=== PATIENT | male | born 1985 | race Caucasian/White ===

== ENCOUNTER 2016-07-28 23:09 | Emergency (ER) | payer SELFPAY ==
[2016-07-28 23:35] VITALS: BP 132/72
--- NOTE | 2016-07-28 23:53 | ER Document Report ---
Addendum entered and electronically signed by MAIRA GONZALEZ NP 08/02/16 15:50 : Original Note: HPI - HPI Patient complains to provider of: cyst pain Onset: Other - one year Quality of pain: Achy Severity: Mild Pain Level: 2 Context: pt presents with c/o cyst to his back that has been there for one year. He reports feeling sharp pains tonight, couldn't sleep. Denies f/n//v/d. Associated Symptoms: None Exacerbated by: Denies Relieved by: Denies Similar symptoms previously: No Recently seen / treated by doctor: No - DERM Skin Color: Normal Past Medical History - General Information source: Patient - Social History Smoking Status: Unknown if Ever Smoked Cigarette use (# per day): No Chew tobacco use (# tins/day): No Frequency of alcohol use: None Drug Abuse: None Occupation: [employer] Family History: Reviewed & Not Pertinent Patient has suicidal ideation: No Patient has homicidal ideation: No - Medical History Medical History: Negative Surgical Hx: Negative Vertical Provider Document - CONSTITUTIONAL Agree With Documented VS: Yes Exam Limitations: No Limitations General Appearance: WD/WN, No Apparent Distress - INFECTION CONTROL TRAVEL OUTSIDE OF THE [place] IN LAST 30 DAYS: No - HEENT HEENT: Atraumatic, Normocephalic - NECK Neck: Normal Inspection, Supple - RESPIRATORY Respiratory: No Respiratory Distress O2 Sat by Pulse Oximetry: 98 - CARDIOVASCULAR Cardiovascular: Regular Rate - MUSCULOSKELETAL/EXTREMETIES Musculoskeletal/Extremeties: MAEW, FROM - NEURO Level of Consciousness: Awake, Alert, Appropriate Motor/Sensory: No Motor Deficit - DERM Integumentary: Warm, Dry Adult Front & Back Diagram: 1 - soft swelling, fatty cyst, moveable, with no erythema, no pustule, no warmth Course - Vital Signs Vital signs: Temp Pulse Resp BP Pulse Ox 98.0 F 68 16 132/72 H 98 07/28/16 23:32 07/28/16 23:32 07/28/16 23:32 07/28/16 23:32 07/28/16 23:32 Discharge - Discharge Clinical Impression: cyst on back , elevated blood pressure Condition: Stable Disposition: HOME, SELF-CARE Instructions: Surgeon Additional Instructions: *You have been treated for a cyst on your back *Take tylenol or motrin as indicated *Monitor the site for signs of infection such as increasing pain, redness, swelling, warmth *Follow up with your primary care provider this week for referral to surgeon *Return to ED for signs of infection, worsening condition, changes, needs Forms: Elevated Blood Pressure
== END 2016-07-29 00:04 | disposition home or self-care (01) ==
LOC: ER 23:09
DX: D36.7 Benign neoplasm of other specified sites (principal); I10 Essential (primary) hypertension
CPT/HCPCS: 99283

== ENCOUNTER 2017-01-13 07:10 | Observation (INO) | payer OTHER ==
[2017-01-13] MEDS ORDERED: LIDOCAINE 2% VISCOUS SOLN 20 ML UDCUP PO ONE (08:27)
[2017-01-13] MEDS ORDERED: MAG HYDROX/AL HYDROX/SIMETH SUSP 30 ML UDCUP PO ONE (08:27)
[2017-01-13] MEDS ORDERED: NORMAL SALINE 1000 ML 1,000 ML IV ONE (08:28)
[2017-01-13] MEDS ORDERED: FAMOTIDINE INJ/PF 20 MG/2 ML SDV IV ONE (08:28)
[2017-01-13] MEDS ORDERED: FENTANYL CITRATE INJ/PF 100 MCG/2 ML AMPUL IV ONE ×2 (08:28→11:07)
[2017-01-13] MEDS ORDERED: ONDANSETRON HCL INJ/PF 4 MG/2 ML SDV IV ONE ×3 (08:29→23:45)
--- NOTE | 2017-01-13 08:29 | ER Document Report ---
ED GI/ - General Mode of Arrival: Ambulatory Information source: Patient TRAVEL OUTSIDE OF THE [place] IN LAST 30 DAYS: No - HPI Patient complains to provider of: Abdominal pain Onset: Just prior to arrival Associated symptoms: None <ALINA SÁNCHEZ - Last Filed: 01/13/17 10:07> <SOURAV HERRERA - Last Filed: 01/13/17 16:08> - General Chief Complaint: Abdominal Pain Stated Complaint: ABDOMINAL PAIN Time Seen by Provider: 01/13/17 08:16 Notes: Patient is a 31-year-old male that presents to the emergency department today with complaints of upper abdominal pain. Patient states this pain began this morning at [address] to work. Patient states he has had a pain similar to this in the past and he was seen at [facility] for this and diagnosed with pancreatitis. Patient states at that time, he had been drinking the night before. Patient states he has not had any EtOH since then. (ALINA SÁNCHEZ) - Related Data Allergies/Adverse Reactions: cefaclor [From Ceclor] Allergy (Verified 01/13/17 07:19) meperidine [From Demerol] Adverse Reaction (Verified 01/13/17 07:19) Past Medical History - General Information source: Patient - Social History Smoking Status: Unknown if Ever Smoked Frequency of alcohol use: None Drug Abuse: None Lives with: Family Family History: Reviewed & Not Pertinent Patient has suicidal ideation: No Patient has homicidal ideation: No Surgical Hx: Negative - Immunizations Hx Diphtheria, Pertussis, Tetanus Vaccination: Yes <ALINA SÁNCHEZ - Last Filed: 01/13/17 10:07> <SOURAV HERRERA - Last Filed: 01/13/17 16:08> - Medical History Notes: History of pancreatitis (ALINA SÁNCHEZ) Review of Systems - Review of Systems Constitutional: No symptoms reported EENT: No symptoms reported Cardiovascular: No symptoms reported Respiratory: No symptoms reported Gastrointestinal: See HPI, Abdominal pain Genitourinary: No symptoms reported Male Genitourinary: No symptoms reported Musculoskeletal: No symptoms reported Skin: No symptoms reported Hematologic/Lymphatic: No symptoms reported Neurological/Psychological: No symptoms reported -: Yes All other systems reviewed and negative <ALINA SÁNCHEZ - Last Filed: 01/13/17 10:07> Physical Exam <ALINA SÁNCHEZ - Last Filed: 01/13/17 10:07> <SOURAV HERRERA - Last Filed: 01/13/17 16:08> - Vital signs Vitals: Temp Pulse Resp BP Pulse Ox 97.6 F 58 L 18 113/53 L 99 01/13/17 07:19 01/13/17 07:19 01/13/17 07:19 01/13/17 07:19 01/13/17 07:19 - Notes Notes: Physical Exam: General: Alert, appears mildly uncomfortable. HEENT: Normocephalic. Atraumatic. PERRL. Extraocular movements intact. Oropharynx clear. Neck: Supple. Non-tender. Respiratory: No respiratory distress. Clear and equal breath sounds bilaterally. Cardiovascular: Regular rate and rhythm. Abdominal: Epigastric and right upper quadrant tenderness with palpation. Positive guarding diffusely. No distension. Normal Bowel Sounds. Back: Non-tender. No deformity or step off. Extremities: Moves all four extremities. Upper extremities: Normal inspection. Normal ROM. Lower extremities: Normal inspection. No edema. Normal ROM. Neurological: Normal cognition. AAOx4. Normal speech. Psychological: Normal affect. Normal Mood. Skin: Warm. Dry. Normal color. (ALINA SÁNCHEZ) Course - Laboratory Result Diagrams: 01/13/17 08:50 01/13/17 08:50 <ALINA SÁNCHEZ - Last Filed: 01/13/17 10:07> - Laboratory Result Diagrams: 01/13/17 08:50 01/13/17 08:50 - Diagnostic Test Radiology reviewed: Image reviewed, Reports reviewed - Thickened gallbladder wall with pericholecystic edema. - Consults Dr. Recinos Time consulted: 15:00 Consulted provider: will come to ER <SOURAV HERRERA - Last Filed: 01/13/17 16:08> - Re-evaluation Re-evalutation: 01/13/17 11:07 Got a little relief from the fentanyl, he does not take GI cocktail helped the pain it just made things feel numb. He remains quite tender in the epigastrium and right upper quadrant at this time. Given the sudden onset of his discomfort , we will get a gallbladder ultrasound to evaluate for gallbladder pathology. The lipase is on the low normal side. (SOURAV HERRERA) - Vital Signs Vital signs: Temp Pulse Resp BP Pulse Ox 97.9 F 50 L 16 103/54 L 99 01/13/17 11:19 01/13/17 11:19 01/13/17 11:19 01/13/17 11:19 01/13/17 11:19 - Laboratory Laboratory results interpreted by me: 01/13/17 01/13/17 08:50 08:50 Sodium 145.2 H ALT 20 L Alkaline Phosphatase 35 L Urine Urobilinogen 4.0 H Discharge <ALINA SÁNCHEZ - Last Filed: 01/13/17 10:07> - Discharge Admitting Provider: Surgicalist Unit Admitted: Surgical Floor <SOURAV HERRERA - Last Filed: 01/13/17 16:08> - Discharge Clinical Impression: Epigastric abdominal pain Condition: Stable Disposition: ADMITTED INPATIENT Scribe Attestation: 01/13/17 15:17 I personally performed the services described in the documentation, reviewed and edited the documentation which was dictated to the scribe in my presence, and it accurately records my words and actions. (SOURAV HERRERA) Scribe Documentation - Scribe Written by Sanjeeve:: Jennifer Domínguez, 01/13/2017 1008 acting as scribe for :: Camryn <ALINA SÁNCHEZ - Last Filed: 01/13/17 10:07>
[2017-01-13 09:31] LABS: ABSOLUTE EOSINOPHILS # (AUTO) 0.1 10^3/uL (0.0-0.6); ABSOLUTE LYMPHOCYTES (AUTO) 1.7 10^3/uL (0.5-4.7); ABSOLUTE MONOCYTES (AUTO) 0.4 10^3/uL (0.1-1.4); ABSOLUTE NEUT (AUTO) 3.1 10^3/uL (1.7-8.2); BASOPHILS % (AUTO) 0.5 % (0-2); HEMATOCRIT 45.3 % (37.9-51.0); HEMOGLOBIN 14.7 g/dL (13.5-17.0); HGB HCT DIFFERENCE -1.2; LYMPHOCYTES % (AUTO) 31.4 % (13-45); MEAN CORPUSCULAR HEMOGLOBIN 28.8 pg (27.0-33.4); MEAN CORPUSCULAR HGB CONC 32.4 g/dL (32.0-36.0); MEAN CORPUSCULAR VOLUME 89 fl (80-97); MONOCYTES % (AUTO) 8.2 % (3-13); RED CELL DISTRIBUTION WIDTH 13.1 % (11.5-14.0); SEGMENTED NEUTROPHILS % (AUTO) 57.9 % (42-78); WHITE BLOOD COUNT 5.4 10^3/uL (4.0-10.5)
[2017-01-13 09:34] LABS: APPEARANCE,URINE SLIGHTLY-CLOUDY; BILIRUBIN,URINE NEGATIVE (NEGATIVE); GLUCOSE, URINE NEGATIVE (NEGATIVE); KETONES,URINE NEGATIVE (NEGATIVE); LEUKOCYTE ESTERASE,URINE NEGATIVE (NEGATIVE); NITRITE,URINE NEGATIVE (NEGATIVE); PROTEIN,URINE NEGATIVE (NEGATIVE); URINE SPECIFIC GRAVITY 1.027
[2017-01-13 09:42] LABS: BACTERIA,URINE TRACE /HPF
[2017-01-13 09:53] LABS: ALANINE AMINOTRANSFERASE 20 U/L (21-72); ALBUMIN 4.1 g/dL (3.5-5.0); ALKALINE PHOSPHATASE 35 U/L (38-126); ANION GAP 11 (5-19); ASPARTATE AMINO TRANSFERASE 25 U/L (17-59); BILIRUBIN,DIRECT 0.3 mg/dL (0.0-0.4); BILIRUBIN,TOTAL 0.6 mg/dL (0.2-1.3); BLOOD UREA NITROGEN 12 mg/dL (7-20); CALCIUM 9.1 mg/dL (8.4-10.2); CARBON DIOXIDE 27 mmol/L (22-30); CHLORIDE 107 mmol/L (98-107); CREATININE RESULT 0.89 mg/dL (0.52-1.25); GLUCOSE 82 mg/dL (75-110); LIPASE 45.1 U/L (23-300); POTASSIUM 4.1 mmol/L (3.6-5.0); SODIUM 145.2 mmol/L (137-145); TOTAL PROTEIN 6.6 g/dL (6.3-8.2)
[2017-01-13] MEDS ORDERED: DEXTROSE 5%-LACTATED RINGERS 1,000 ML IV ONE (11:05)
--- NOTE | 2017-01-13 14:34 | RADIOLOGY REPORT (SQ) ---
EXAM DESCRIPTION: U/S ABDOMEN LIMITED W/O DOP COMPLETED DATE/TIME: 01/13/2017 2:25 pm REASON FOR STUDY: epigastric and RUQ abd pain COMPARISON: None. TECHNIQUE: Dynamic and static grayscale images acquired of the abdomen and recorded on PACS. Additio nal selected color Doppler and spectral images recorded. LIMITATIONS: None. FINDINGS: PANCREAS: No masses. Visualized pancreatic duct normal caliber. LIVER: No masses. Echotexture normal. LIVER VASCULATURE: Normal directional flow of the main portal vein and hepatic veins. GALLBLADDER: The gallbladder wall is thickened measured 5.4 mm. There is pericholecystic fluid. ULTRASOUND-DETECTED BENAVIDES'S SIGN: Negative. INTRAHEPATIC DUCTS AND COMMON DUCT: CBD and intrahepatic ducts normal caliber. No filling defects. INFERIOR VENA CAVA: Normal flow. AORTA: No aneurysm. RIGHT KIDNEY: Normal size. Normal echogenicity. No solid or suspicious masses. No hydronephrosis. No calcifications. PERITONEAL AND RIGHT PLEURAL SPACE: No ascites or effusions. OTHER: No other significant findings. IMPRESSION: Thickened gallbladder wall with pericholecystic edema. Negative sonographic Benavides's si gn. No ductal dilatation. TECHNICAL DOCUMENTATION: JOB ID: [id number] Minutes- All Rights Reserved
[2017-01-13] MEDS ORDERED: NORMAL SALINE 1000 ML 1,000 ML IV PRN (16:15)
--- NOTE | 2017-01-13 16:15 | PDOC H&P ---
History of Present Illness Patient complains of: Epigastric abdominal pain with nausea History of Present Illness: BA BLAKE is a 31 year old male Presents emergency room this a.m. with complaints of severe sudden onset midepigastric abdominal pain. The patient stated that he was on his way to work this morning began having midepigastric abdominal pain that was severe. He denied any radiation to the pain to his back or his shoulder. He stated he had not had that pain in the past. He had eaten nothing prior to the onset of the pain. He stated last night he ate at [employer] denied any renea colored stools or dark urine. He stated that he did not vomit during this event. He continues to complain of some nausea. Patient has a history of EtOH abuse stating that he drank a case of beer a day and a pint of liquor a day for 3 years but he quit with an episode of severe acute pancreatitis in 2013. He stated that he has not had any alcohol since that time. Not any recurrent episodes of pancreatitis. He denies any fever, chills, sweats. He states the pain is still an 8 out of 10. Patient denies any fatty food intolerance but stated that he was told to stay away from fatty foods when he had his bout of pancreatitis. He has been extremely healthy since that time. I did any increased flatulence or belching. Fatty food intolerance. Stated at the time that he had pancreatitis that only a CT scan of the abdomen pelvis was performed. He does not remember having an ultrasound at that time. But he never told them that he had any type of gallstones. Past Medical History Cardiac Medical History: Reports: None Pulmonary Medical History: Reports: None EENT Medical History: Reports: None Neurological Medical History: Reports: None Endocrine Medical History: Reports: None Renal/ Medical History: Reports: None Malignancy Medical History: Reports: None GI Medical History: Reports: Other - The pancreatitis secondary to EtOH abuse Musculoskeltal Medical History: Reports: None Skin Medical History: Reports: None Psychiatric Medical History: Reports: Alcohol Dependency Traumatic Medical History: Reports: None Hematology: Reports: None Infectious Medical History: Reports: None Past Surgical History Past Surgical History: Reports: Tonsillectomy Social History Lives with: Family Smoking Status: Unknown if Ever Smoked Frequency of Alcohol Use: Heavy - To admit to drinking a case of beer per day and 1 pint of liquor per day for 4 years. Patient stated that he has not had any alcohol since 2013 Hx Prescription Drug Abuse: No Family History Family History: Reviewed & Not Pertinent Parental Family History Reviewed: Yes - Mother alive with dependent diabetes mellitus type 2, mother alive and in g Children Family History Reviewed: No Sibling(s) Family History Reviewed.: Yes Medication/Allergy Home Medications: Oxycodone HCl/Acetaminophen [Percocet 5-325 mg Tablet] 1 - 2 tab PO Q4H PRN #15 tablet 05/08/16 Prednisone [Deltasone 10 mg Tablet] 10 mg PO ASDIR PRN #21 tablet 05/08/16 Allergies/Adverse Reactions: cefaclor [From Ceclor] Allergy (Verified 01/13/17 07:19) meperidine [From Demerol] Adverse Reaction (Verified 01/13/17 07:19) Review of Systems Constitutional: PRESENT: anorexia Eyes: PRESENT: as per HPI Ears: PRESENT: as per HPI Nose, Mouth, and Throat: PRESENT: as per HPI Breasts: PRESENT: as per HPI Cardiovascular: PRESENT: as per HPI Respiratory: PRESENT: as per HPI Gastrointestinal: PRESENT: abdominal pain, heartburn, nausea Genitourinary: PRESENT: as per HPI Musculoskeletal: PRESENT: as per HPI Integumentary: PRESENT: as per HPI Neurological: PRESENT: as per HPI Psychiatric: PRESENT: as per HPI Endocrine: PRESENT: as per HPI Hematologic/Lymphatic: PRESENT: as per HPI Allergic/Immunologic: PRESENT: as per HPI Physical Exam Vital Signs: Temp Pulse Resp BP Pulse Ox 97.9 F 50 L 16 103/54 L 99 01/13/17 11:19 01/13/17 11:19 01/13/17 11:19 01/13/17 11:19 01/13/17 11:19 Intake & Output 01/12/17 01/13/17 01/14/17 06:59 06:59 06:59 Weight 63.9 kg General appearance: PRESENT: cooperative, mild distress, thin, well-developed, well-nourished Head exam: PRESENT: atraumatic, normocephalic Eye exam: PRESENT: conjunctiva pink, EOMI, PERRLA Ear exam: PRESENT: normal external ear exam Mouth exam: PRESENT: dry mucosa, neck supple Teeth exam: ABSENT: dental caries, dental tenderness, edentulous, poor dentation , other Neck exam: ABSENT: carotid bruit, full ROM, JVD, lymphadenopathy, meningismus, tenderness, thyromegaly, tracheal deviation, tracheostomy, other Respiratory exam: PRESENT: symmetrical, unlabored Cardiovascular exam: PRESENT: RRR, +S1, +S2 Pulses: PRESENT: normal carotid pulses, normal radial pulses, normal femoral pulses, normal dorsalis pedis pul GI/Abdominal exam: PRESENT: guarding - Epigastric area, normal bowel sounds, soft, other - Negative Benavides sign, negative Kehr's sign Rectal exam: PRESENT: deferred Gentrourinary exam: PRESENT: other - Penis is circumcised, testicles descended bilaterally evidence of hernias bilaterally. Musculoskeletal exam: PRESENT: ambulatory, full ROM, normal inspection Neurological exam: PRESENT: alert, awake, oriented to person, oriented to place , oriented to time, oriented to situation, reflexes normal, CN II-XII grossly intact, normal gait Psychiatric exam: PRESENT: appropriate affect Skin exam: PRESENT: intact Results Laboratory Results: 01/13/17 08:50 01/13/17 08:50 01/13/17 01/13/17 01/13/17 08:50 08:50 08:50 WBC 5.4 RBC 5.10 Hgb 14.7 Hct 45.3 MCV 89 MCH 28.8 MCHC 32.4 RDW 13.1 Plt Count 151 Seg Neutrophils % 57.9 Lymphocytes % 31.4 Monocytes % 8.2 Eosinophils % 2.0 Basophils % 0.5 Absolute Neutrophils 3.1 Absolute Lymphocytes 1.7 Absolute Monocytes 0.4 Absolute Eosinophils 0.1 Absolute Basophils 0.0 Sodium 145.2 H Potassium 4.1 Chloride 107 Carbon Dioxide 27 Anion Gap 11 BUN 12 Creatinine 0.89 Est GFR ( Amer) > 60 Est GFR (Non-Af Amer) > 60 Glucose 82 Calcium 9.1 Total Bilirubin 0.6 AST 25 ALT 20 L Alkaline Phosphatase 35 L Total Protein 6.6 Albumin 4.1 Lipase 45.1 Urine Color YELLOW Urine Appearance SLIGHTLY-CLOUDY Urine pH 5.0 Ur Specific [place] 1.027 Urine Protein NEGATIVE Urine Glucose (UA) NEGATIVE Urine Ketones NEGATIVE Urine Blood NEGATIVE Urine Nitrite NEGATIVE Ur Leukocyte Esterase NEGATIVE Impressions: Abdomen Ultrasound 01/13/17 11:06 IMPRESSION: Thickened gallbladder wall with pericholecystic edema. Negative sonographic Benavides's sign. No ductal dilatation. Status: Imported from PACS - Ultrasound gallbladder revealed pericholecystic edema with a thickened gallbladder wall at 5.4 mm. No evidence of cholelithiasis, cholecystitis noted. Assessment & Plan - Diagnosis (1) Epigastric abdominal pain Is this a current diagnosis for this admission?: YesPlan: 1. The patient has no right upper quadrant abdominal pain and complains of only pain in the midepigastric area that does not radiate to the shoulder or back no evidence of cholelithiasis data white blood count differential would include acalculous cholecystitis versus peptic ulcer disease. As the patient has noted stress at home as he is going through divorce, I would perform an esophagogastroduodenoscopy on the patient to entertaining any type of surgical intervention 2. Patient does not have an elevated white count will consider only pain control and nausea control at this time. 3. Patient's history of acute pancreatitis in the past would obtain a CT scan of the abdomen and pelvis with oral and IV contrast if the EGD is normal. - Time Time Spent: 50 to 70 Minutes Medications reviewed and adjusted accordingly: Yes Anticipated discharge: Home Within: within 24 hours Disposition: Medical surgical floor
[2017-01-13] MEDS: ONDANSETRON HCL INJ/PF 4 MG/2 ML SDV IV PRN (16:58)
[2017-01-13] MEDS ORDERED: PANTOPRAZOLE SODIUM 40 MG VIAL IV ONE (17:15)
[2017-01-13] MEDS: HYDROMORPHONE HCL INJ/PF 2 MG/ML AMPULE IV PRN (22:33)
[2017-01-13] MEDS: PANTOPRAZOLE SODIUM 40 MG VIAL IV SCH (22:34)
[2017-01-14 06:18] LABS: HEMATOCRIT 39.3 % (37.9-51.0); HGB HCT DIFFERENCE -0.3; MEAN CORPUSCULAR HEMOGLOBIN 29.5 pg (27.0-33.4); MEAN CORPUSCULAR HGB CONC 33.1 g/dL (32.0-36.0); MEAN CORPUSCULAR VOLUME 89 fl (80-97); RED CELL DISTRIBUTION WIDTH 13.2 % (11.5-14.0); WHITE BLOOD COUNT 5.9 10^3/uL (4.0-10.5)
[2017-01-14 06:38] LABS: PARTIAL THROMBOPLASTIN TIME 29.3 SEC (23.5-35.8); PROTHROMBIN TIME 15.5 SEC (11.4-15.4)
[2017-01-14 06:49] LABS: ALANINE AMINOTRANSFERASE 22 U/L (21-72); ALBUMIN 3.3 g/dL (3.5-5.0); ALKALINE PHOSPHATASE 34 U/L (38-126); AMYLASE 38 U/L (30-110); ANION GAP 8 (5-19); ASPARTATE AMINO TRANSFERASE 19 U/L (17-59); BILIRUBIN,DIRECT 0.3 mg/dL (0.0-0.4); BILIRUBIN,TOTAL 0.5 mg/dL (0.2-1.3); BLOOD UREA NITROGEN 8 mg/dL (7-20); CALCIUM 8.8 mg/dL (8.4-10.2); CARBON DIOXIDE 26 mmol/L (22-30); CHLORIDE 107 mmol/L (98-107); CREATININE RESULT 0.85 mg/dL (0.52-1.25); GLUCOSE 85 mg/dL (75-110); LIPASE 52.4 U/L (23-300); POTASSIUM 4.8 mmol/L (3.6-5.0); SODIUM 140.6 mmol/L (137-145); TOTAL PROTEIN 5.5 g/dL (6.3-8.2)
[2017-01-14] MEDS: HYDROMORPHONE HCL INJ/PF 2 MG/ML AMPULE IV PRN (08:22)
--- NOTE | 2017-01-14 08:24 | Physician Advisory Note ---
Physician Advisor ProgressNote .: Pursuant to the plan for [facility], I have reviewed the medical record for this patient. Physician Advisor Statement: Attending, please consider documenting, if you agree: 1. "Acute Hypernatremia, suspect due to intravascular volume depletion, resolved after IVF" 2. Status: if pt not improved enough for d/c later today after appropriate eval, please document clinical reasons/concerns, & may consider change to Inpatient status. 3. Anemia: A. Do you suspect it is likely acute or chronic? B. Most likely cause = [Acute blood loss from ____? Nutritional Fe defic? Fe defic from chr blood loss from ___? Nutritional ___ defic?] Thanks for your help with optimizing documentation! MD Nicholas [facility] Physician Advisor [phone]
[2017-01-14] MEDS: PANTOPRAZOLE SODIUM 40 MG VIAL IV SCH (09:34)
[2017-01-14] MEDS ORDERED: MIDAZOLAM 2 MG/2 ML INJ ONE (10:53)
[2017-01-14] MEDS ORDERED: PROPOFOL INJ 200 MG/20 ML VIAL IV ONE (10:54)
--- NOTE | 2017-01-14 11:22 | Brief Operative Note ---
BRIEF OPERATIVE REPORT DATE OF SURGERY: 01/14/17 TIME OF SURGERY: 11:05 PREOPERATIVE DIAGNOSIS: Epigastric abdominal pain rule out peptic ulcer disease POSTOPERATIVE DIAGNOSIS: Antritis SURGEON: DAVID KELLEY FINDINGS: Erythema of the prepyloric antrum of the stomach COMPLICATIONS: none ESTIMATED BLOOD LOSS: none TISSUE REMOVED OR ALTERED: Biopsy prepyloric antrum TECHNICAL PROCEDURE: On 01/14/2017 31-year-old white male was taken to the endoscopy suite placed supine position after adequate MAC anesthesia was placed in the left lateral decubitus position a bite block was placed between the teeth. The Olympus-GIF XQ 180 videogastroscope was advanced to bite block into the hypopharynx into the esophagus without difficulty. The scope was advanced to the level of the GE junction. The stomach was insufflated with air of the instrument. The scope was advanced to the level of pylorus pylorus was intubated first second and third portions of the duodenum were intubated. The scope was slowly withdrawn visualizing the duodenal mucosa to the bulb the bulb was photographed scope withdrawn in the prepyloric area hyperreflexive himself 180 and withdrawn visualizing the cardia and GE junction. Scope was then straightened and advanced in the antrum where a biopsy was obtained in the prepyloric area passed off the operative field and sent to pathology for further evaluation. Scope was then withdrawn up the lesser curvature stomach to the GE junction and liquid removed from the stomach scope withdrawn into the distal, mid, proximal esophagus then removed from the patient he was placed supine and taken recovery area in satisfactory condition. Gross pathology this 31-year-old white male with complaints of midepigastric abdominal pain noted to have edema of the gallbladder wall some thickening of the gallbladder wall but a history of pancreatitis secondary to EtOH abuse presented for EGD to rule out gastric ulcer. Operative pathology include a normal-appearing esophagus along its entire length. The Z line was symmetrical and up held without any evidence of esophagitis. Stomach was normal in size and configuration. There was mild erythema in the prepyloric antrum. Duodenum was normal to the fourth portion.
[2017-01-14] MEDS: ONDANSETRON HCL INJ/PF 4 MG/2 ML SDV IV PRN (12:24)
[2017-01-14] MEDS ORDERED: OXYCODONE-ACETAMINOPHEN 5-325 MG TABLET PO PRN (12:48)
[2017-01-14] MEDS ORDERED: GLYCOPYRROLATE INJ 0.4 MG/2 ML VIAL ONE (14:41)
[2017-01-14] MEDS ORDERED: ONDANSETRON HCL INJ/PF 4 MG/2 ML SDV ONE (14:41)
[2017-01-14] MEDS ORDERED: METOCLOPRAMIDE HCL INJ/PF 10 MG/2 ML SDV ONE (14:41)
--- NOTE | 2017-01-14 14:48 | RADIOLOGY REPORT (SQ) ---
EXAM DESCRIPTION: CT ABD/PELVIS WITH IV ORAL COMPLETED DATE/TIME: 01/14/2017 2:28 pm REASON FOR STUDY: epigastric abdominal pain COMPARISON: None. TECHNIQUE: CT scan of the abdomen and pelvis performed using helical scanning technique with dynamic intravenous contrast injection. Oral contrast. Images reviewed with lung, soft tissue, and bone win dows. Reconstructed coronal and sagittal MPR images reviewed. Delayed images for evaluation of the ur inary system also acquired. All images stored on PACS. All CT scanners at this facility use dose modulation, iterative reconstruction, and/or weight based d osing when appropriate to reduce radiation dose to as low as reasonably achievable (ALARA). [facility]: Dose Right [facility]: CareDose [facility]: Dose Right [facility]: Teradose 4D [facility]: zePASS CONTRAST TYPE AND DOSE: contrast/concentration: Isovue 370.00 mg/ml; Total Contrast Delivered: 69.0 ml; Total Saline Delivered: 65.0 ml RENAL FUNCTION: Creatinine 0.9 BUN 8 RADIATION DOSE: Up-to-date CT equipment and radiation dose reduction techniques were employed. CTDIv ol: 2.8 - 3.2 mGy. DLP: 326 mGy-cm.. LIMITATIONS: None. FINDINGS: LOWER CHEST: There is a small right pleural effusion. There is no pulmonary infiltrate or mass. LIVER: Normal size. No masses or dilated ducts. SPLEEN: Normal size. No focal lesions. PANCREAS: No masses. No significant calcifications. No adjacent inflammation or peripancreatic fluid collections. Pancreatic duct not dilated. GALLBLADDER: No identified stones by CT criteria. No inflammatory changes to suggest cholecystitis. ADRENAL GLANDS: No significant masses or asymmetry. RIGHT KIDNEY AND URETER: No solid masses. No significant calcifications. No hydronephrosis or hyd roureter. LEFT KIDNEY AND URETER: No solid masses. No significant calcifications. No hydronephrosis or hydr oureter. AORTA AND VESSELS: No aneurysm. No dissection. Renal arteries, SMA, celiac without stenosis. RETROPERITONEUM: No retroperitoneal adenopathy, hemorrhage or masses. BOWEL AND PERITONEAL CAVITY: There is a small amount of free fluid around the liver and in the pelvis . No bowel mass is seen. No inflammatory changes are associated with the bowel. APPENDIX: Normal. PELVIS: Free fluid is present. The urinary bladder is normal. The prostate gland and seminal vesicl es are normal. ABDOMINAL WALL: No masses. No hernias. BONES: No significant or acute findings. OTHER: No other significant finding. IMPRESSION: 1. There is a small right pleural effusion. 2. There is small amount of free fluid around the liver and in the pelvis, etiology uncertain. TECHNICAL DOCUMENTATION: JOB ID: [id number] Quality ID # [id number]: Final reports with documentation of one or more dose reduction techniques (e.g., Au tomated exposure control, adjustment of the mA and/or kV according to patient size, use of iterative reconstruction technique) 2010 [employer]- All Rights Reserved
--- NOTE | 2017-01-14 17:04 | PDOC DISCHARGE SUMMARY ---
Discharge Summary (SDC) - Discharge Final Diagnosis: Antritis Intractable nausea Epigastric pain Date of Surgery: 01/14/17 Discharge Date: 01/14/17 Condition: Good Treatment or Instructions: 1. Follow-up with Dr. Pride 1 week, call for appointment 2. Diet for next 24 hours followed by full liquid diet for 24 hours followed by soft diet in [address] Pride's office or return to the emergency room if symptoms become worse Prescriptions: Ondansetron HCl [Zofran 8 mg Tablet] 8 mg PO Q8HP PRN #30 tablet PRN Reason: Oxycodone HCl/Acetaminophen [Percocet 5-325 mg Tablet] 1 - 2 tab PO ASDIR PRN # 30 tablet PRN Reason: Pantoprazole Sodium [Protonix] 40 mg PO DAILY #30 tablet.dr Referrals: ESTHER PRIDE MD [ACTIVE STAFF] - Discharge Diet: Clear Liquids Discharge Activity: No Lifting/Push/Pulling, Other - May return to work next Friday Home Care Assistance: None Needed, Provided by Family Report the Following to Your Physician Immediately: Nausea, Vomiting, Increase in Pain, Fever over 101 Degrees, IV Site Infection Signs
[2017-01-14 17:12] VITALS: BP 110/46
== END 2017-01-14 17:50 | disposition home or self-care (01) ==
LOC: ER 07:10 → 4N 16:15 → INTOOBSV 16:15 → EH 16:27 → UNDOADMIN 16:27 → 4N 18:38 → EH 18:38
PROVIDERS: ATTEND Surgery
PROC: 0DB78ZX Excision of Stomach, Pylorus, Via Natural or Artificial Opening Endoscopic, Diagnostic (ICD-10-PCS; principal; 2017-01-14 11:45)
DX: K29.50 Unspecified chronic gastritis without bleeding (principal); R11.0 Nausea; R10.13 Epigastric pain; R63.0 Anorexia; Z87.19 Personal history of other diseases of the digestive system; Z87.898 Personal history of other specified conditions; Z68.1 Body mass index [BMI] 19.9 or less, adult
CPT/HCPCS: 96376; 99285; 96361; 96375; 96365; 43239; 36415 ×2; 82150; 83690 ×2; 85025; 85027; 85610; 85730; 80053 ×2; 81001; 88342 ×2; 88305 ×2; 76705; 74177; G0378 ×3; J2250; J3010; J3490; J2765; J1170 ×2; S0164 ×2; J2405 ×2; J7030; J2704; S0028; 740; 96360

== ENCOUNTER 2017-02-11 20:08 | Emergency (ER) | payer OTHER ==
--- NOTE | 2017-02-11 20:42 | ER Document Report ---
ED Medical Screen (RME) - General Chief Complaint: Abdominal Pain Stated Complaint: STOMACH PAIN Time Seen by Provider: 02/11/17 20:40 Notes: Patient presents with right upper quadrant pain. This started this morning. He states he had similar pain about a 1 month ago. At that time he was admitted to the hospital and told that he had a swollen gallbladder wall and free fluid in his pelvis. An endoscopy was performed. He states a biopsy was done that was negative. He states he was discharged home without any surgery. He states that no diagnosis was given that he knows of. He also states that he did have a CT scan at that time and was told that that was abnormal. TRAVEL OUTSIDE OF THE [place] IN LAST 30 DAYS: No - Related Data Allergies/Adverse Reactions: cefaclor [From Ceclor] Allergy (Verified 01/13/17 07:19) meperidine [From Demerol] Adverse Reaction (Verified 01/13/17 07:19) Past Medical History Renal/ Medical History: Denies: Hx Peritoneal Dialysis Past Surgical History: Reports: Hx Tonsillectomy - Immunizations Hx Diphtheria, Pertussis, Tetanus Vaccination: Yes Physical Exam - Vital signs Vitals: Temp Pulse Resp BP Pulse Ox 97.9 F 69 16 122/56 L 100 02/11/17 20:26 02/11/17 20:26 02/11/17 20:26 02/11/17 20:26 02/11/17 20:26 Course - Vital Signs Vital signs: Temp Pulse Resp BP Pulse Ox 97.9 F 69 16 122/56 L 100 02/11/17 20:26 02/11/17 20:26 02/11/17 20:26 02/11/17 20:26 02/11/17 20:26
[2017-02-11 20:57] LABS: ABSOLUTE EOSINOPHILS # (AUTO) 0.2 10^3/uL (0.0-0.6); ABSOLUTE MONOCYTES (AUTO) 0.5 10^3/uL (0.1-1.4); BASOPHILS % (AUTO) 0.2 % (0-2); HEMATOCRIT 48.7 % (37.9-51.0); HEMOGLOBIN 16.4 g/dL (13.5-17.0); HGB HCT DIFFERENCE 0.5; LYMPHOCYTES % (AUTO) 35.3 % (13-45); MEAN CORPUSCULAR HEMOGLOBIN 29.8 pg (27.0-33.4); MEAN CORPUSCULAR HGB CONC 33.7 g/dL (32.0-36.0); MEAN CORPUSCULAR VOLUME 88 fl (80-97); MONOCYTES % (AUTO) 9.1 % (3-13); RED CELL DISTRIBUTION WIDTH 13.4 % (11.5-14.0); SEGMENTED NEUTROPHILS % (AUTO) 52.4 % (42-78); WHITE BLOOD COUNT 5.7 10^3/uL (4.0-10.5)
[2017-02-11 21:21] LABS: ALANINE AMINOTRANSFERASE 27 U/L (21-72); ALBUMIN 5.1 g/dL (3.5-5.0); ALKALINE PHOSPHATASE 36 U/L (38-126); ANION GAP 11 (5-19); ASPARTATE AMINO TRANSFERASE 25 U/L (17-59); BILIRUBIN,DIRECT 0.2 mg/dL (0.0-0.4); BILIRUBIN,TOTAL 0.9 mg/dL (0.2-1.3); BLOOD UREA NITROGEN 10 mg/dL (7-20); CALCIUM 10.2 mg/dL (8.4-10.2); CARBON DIOXIDE 29 mmol/L (22-30); CHLORIDE 102 mmol/L (98-107); GLUCOSE 83 mg/dL (75-110); LIPASE 64.8 U/L (23-300); POTASSIUM 4.5 mmol/L (3.6-5.0); SODIUM 141.9 mmol/L (137-145); TOTAL PROTEIN 7.6 g/dL (6.3-8.2)
--- NOTE | 2017-02-11 22:37 | RADIOLOGY REPORT (SQ) ---
EXAM DESCRIPTION: U/S ABDOMEN LIMITED W/O DOP COMPLETED DATE/TIME: 02/11/2017 10:08 pm REASON FOR STUDY: ruq pain/hx abn findings COMPARISON: Abdominal ultrasound dated 01/13/2017 TECHNIQUE: Dynamic and static grayscale images acquired of the abdomen and recorded on PACS. Additio nal selected color Doppler and spectral images recorded. LIMITATIONS: None. FINDINGS: PANCREAS: No masses. Visualized pancreatic duct normal caliber. LIVER: No masses. Echotexture normal. LIVER VASCULATURE: Normal blood flow is identified in the portal vein. GALLBLADDER: No stones. Normal wall thickness. No pericholecystic fluid. ULTRASOUND-DETECTED DE GUZMAN'S SIGN: Negative. INTRAHEPATIC DUCTS AND COMMON DUCT: CBD and intrahepatic ducts normal caliber. No filling defects. INFERIOR VENA CAVA: Normal flow. AORTA: No aneurysm. RIGHT KIDNEY: Normal size. Normal echogenicity. No solid or suspicious masses. No hydronephrosis. No calcifications. PERITONEAL AND RIGHT PLEURAL SPACE: No ascites or effusions. OTHER: No other significant findings. IMPRESSION: No significant intra-abdominal abnormalities were identified. Findings as noted above TECHNICAL DOCUMENTATION: JOB ID: [id number] [employer]- All Rights Reserved
--- NOTE | 2017-02-11 23:09 | ER Document Report ---
ED General - General Chief Complaint: Abdominal Pain Stated Complaint: STOMACH PAIN Time Seen by Provider: 02/11/17 20:40 Notes: Patient is a 31-year-old male who comes emergency department for chief complaint of right-sided abdominal pain that started last night, he states it has gradually worsened throughout the day and now he cannot sleep because of the pain. He denies nausea or vomiting, states that he did not have any appetite. He denies flank pain, dysuria, discharge, history of kidney stones. He had a normal bowel movement earlier today. Patient states he had a right upper quadrant ultrasound and an endoscopy last month, no surgery, is on Protonix. He used to drink heavy alcohol, denies any alcohol in 3 years. He denies any other medical history. TRAVEL OUTSIDE OF THE [place] IN LAST 30 DAYS: No - Related Data Allergies/Adverse Reactions: cefaclor [From Ceclor] Allergy (Verified 01/13/17 07:19) meperidine [From Demerol] Adverse Reaction (Verified 01/13/17 07:19) Past Medical History - General Information source: Patient - Social History Smoking Status: Never Smoker Drug Abuse: None Lives with: Family Family History: Reviewed & Not Pertinent - Medical History Medical History: Negative Renal/ Medical History: Denies: Hx Peritoneal Dialysis Past Surgical History: Reports: Hx Tonsillectomy - Immunizations Hx Diphtheria, Pertussis, Tetanus Vaccination: Yes Review of Systems - Review of Systems Constitutional: No symptoms reported EENT: No symptoms reported Cardiovascular: No symptoms reported Respiratory: No symptoms reported Gastrointestinal: See HPI Genitourinary: No symptoms reported Male Genitourinary: No symptoms reported Musculoskeletal: No symptoms reported Skin: No symptoms reported Hematologic/Lymphatic: No symptoms reported Neurological/Psychological: No symptoms reported Physical Exam - Vital signs Vitals: Temp Pulse Resp BP Pulse Ox 97.9 F 69 16 122/56 L 100 02/11/17 20:26 02/11/17 20:26 02/11/17 20:26 02/11/17 20:26 02/11/17 20:26 Interpretation: Normal - General General appearance: Appears well, Alert - HEENT Head: Normocephalic, Atraumatic Eyes: Normal Pupils: PERRL - Respiratory Respiratory status: No respiratory distress Chest status: Nontender Breath sounds: Normal Chest palpation: Normal - Cardiovascular Rhythm: Regular Heart sounds: Normal auscultation Murmur: No - Abdominal Inspection: Normal Distension: No distension Bowel sounds: Normal Tenderness: Tender - Patient is tender significantly in both the right upper quadrant and right lower quadrant, no rebound tenderness, no rigidity Organomegaly: No organomegaly - Back Back: Normal, Nontender - Extremities General upper extremity: Normal inspection, Nontender, Normal color, Normal ROM , Normal temperature General lower extremity: Normal inspection, Nontender, Normal color, Normal ROM , Normal temperature, Normal weight bearing. No: Romulo's sign - Neurological Neuro grossly intact: Yes Cognition: Normal Orientation: AAOx4 Anay Coma Scale Eye Opening: Spontaneous [place] Coma Scale Verbal: Oriented Anay Coma Scale Motor: Obeys Commands Anay Coma Scale Total: 15 Speech: Normal Motor strength normal: LUE, RUE, LLE, RLE Sensory: Normal - Psychological Associated symptoms: Normal affect, Normal mood - Skin Skin Temperature: Warm Skin Moisture: Dry Skin Color: Normal Course - Re-evaluation Re-evalutation: Patient with significant amount of tenderness in both right upper quadrant and right lower quadrants. Ultrasound is unremarkable. Discussed possible appendicitis. Symptoms began last night and has progressively worsening per patient. No hematuria suggesting kidney stone. Labs unremarkable. Will perform CT to rule out acute appendicitis. After pain medication patient is significantly improved, on reexamination he is comfortable, CT is negative for acute appendicitis, appendix was visualized, no stranding, no acute abnormalities. Patient is requesting to go home. I did recommend a HIDA scan because of patient's intermittent symptoms and negative workups, referred to gastroenterology if symptoms continue after an HIDA scan is normal. I had a lengthy discussion with both patient and family members. They state understanding and agreement, states he understands return precautions as well. - Vital Signs Vital signs: Temp Pulse Resp BP Pulse Ox 97.9 F 68 18 126/56 H 98 02/11/17 20:26 02/12/17 03:37 02/12/17 03:37 02/12/17 03:37 02/12/17 03:37 - Laboratory Result Diagrams: 02/11/17 20:45 02/11/17 20:45 Laboratory results interpreted by me: 02/11/17 20:45 Alkaline Phosphatase 36 L Albumin 5.1 H Discharge - Discharge Clinical Impression: Right sided abdominal pain Condition: Stable Disposition: HOME, SELF-CARE Additional Instructions: Your workup today shows no concerning acute abnormalities. I recommend a HIDA scan on outpatient follow-up, if this is normal and symptoms continue follow-up with the gastroenterology referral. Take the medications if needed, avoid fatty foods in your diet. Return to emergency department for any concerning or worsening symptoms Prescriptions: Ibuprofen [Motrin 600 mg Tablet] 600 mg PO Q8HP PRN #24 tablet PRN Reason: Hydrocodone/Acetaminophen [Schuyler 5-325 mg Tablet] 1 - 2 tab PO ASDIR #12 tablet Forms: Return to Work Referrals: CARLENE PISANO MD [ACTIVE STAFF] - Follow up as needed EDGARDO AGUILAR MD [ACTIVE STAFF] - Follow up as needed LOKI ARREDONDO MD [ACTIVE STAFF] - Follow up as needed
[2017-02-11 23:55] LABS: AMORPHOUS SEDIMENT,URINE 1+ /HPF; APPEARANCE,URINE CLOUDY; BILIRUBIN,URINE NEGATIVE (NEGATIVE); GLUCOSE, URINE NEGATIVE (NEGATIVE); KETONES,URINE NEGATIVE (NEGATIVE); LEUKOCYTE ESTERASE,URINE NEGATIVE (NEGATIVE); NITRITE,URINE NEGATIVE (NEGATIVE); PROTEIN,URINE NEGATIVE (NEGATIVE); UROBILINOGEN,URINE NEGATIVE mg/dL (<2.0)
[2017-02-12] MEDS ORDERED: NORMAL SALINE 1000 ML 1,000 ML IV ONE (00:23)
[2017-02-12] MEDS ORDERED: ONDANSETRON HCL INJ/PF 4 MG/2 ML SDV IV ONE (00:23)
[2017-02-12] MEDS ORDERED: MORPHINE SULFATE 10 MG/ML INJ IV ONE (00:23)
--- NOTE | 2017-02-12 03:12 | RADIOLOGY REPORT (SQ) ---
EXAM DESCRIPTION: CT ABD/PELVIS WITH IV ORAL COMPLETED DATE/TIME: 02/12/2017 2:16 am REASON FOR STUDY: RLQ pain COMPARISON: 6.27.17 TECHNIQUE: CT scan of the abdomen and pelvis performed using helical scanning technique with dynamic intravenous contrast injection. No oral contrast. Images reviewed with lung, soft tissue, and bone windows. Reconstructed coronal and sagittal MPR images reviewed. Delayed images for evaluation of the urinary system also acquired. All images stored on PACS. All CT scanners at this facility use dose modulation, iterative reconstruction, and/or weight based d osing when appropriate to reduce radiation dose to as low as reasonably achievable (ALARA). [facility]: Dose Right [facility]: CareDose [facility]: Dose Right [facility]: Teradose 4D [facility]: [employer] CONTRAST TYPE AND DOSE: contrast/concentration: Isovue 370.00 mg/ml; Total Contrast Delivered: 67.0 ml; Total Saline Delivered: 65.0 ml RENAL FUNCTION: None required. The patient is less than 50 years old. RADIATION DOSE: Up-to-date CT equipment and radiation dose reduction techniques were employed. CTDIv ol: 4.9 mGy. DLP: 548 mGy-cm.. LIMITATIONS: None. FINDINGS: LOWER CHEST: Likely benign 0.4 cm pleural-based non solid nodularity of the left lower lob e without interval change since 1 month prior. LIVER: Normal size. No masses. No dilated ducts. SPLEEN: Normal size. No focal lesions. PANCREAS: No masses. No significant calcifications. No adjacent inflammation or peripancreatic fluid collections. Pancreatic duct not dilated. GALLBLADDER: No identified stones by CT criteria. No inflammatory changes to suggest cholecystitis. ADRENAL GLANDS: No significant masses or asymmetry. RIGHT KIDNEY AND URETER: No solid masses. No significant calcifications. No hydronephrosis or hyd roureter. LEFT KIDNEY AND URETER: No solid masses. No significant calcifications. No hydronephrosis or hydr oureter. AORTA AND VESSELS: No aneurysm. No dissection. Renal arteries, SMA, celiac without stenosis. RETROPERITONEUM: No retroperitoneal adenopathy, hemorrhage or masses. BOWEL AND PERITONEAL CAVITY: No masses or inflammatory changes. No free fluid or peritoneal masses. APPENDIX: Normal. PELVIS: No mass. No free fluid. Normal bladder. ABDOMINAL WALL: No masses. No hernias. BONES: No significant or acute findings. OTHER: No other significant finding. IMPRESSION: NO SIGNIFICANT OR ACUTE FINDING IN THE ABDOMEN OR PELVIS ON CT SCAN WITH IV CONTRAST. TECHNICAL DOCUMENTATION: JOB ID: [id number] Quality ID # [id number]: Final reports with documentation of one or more dose reduction techniques (e.g., Au tomated exposure control, adjustment of the mA and/or kV according to patient size, use of iterative reconstruction technique) 2010 [employer]- All Rights Reserved
[2017-02-12 03:40] VITALS: BP 126/56
== END 2017-02-12 03:36 | disposition home or self-care (01) ==
LOC: ER 20:08
DX: R10.11 Right upper quadrant pain (principal)
CPT/HCPCS: 99284; 96374; 96375; 36415; 83690; 85025; 80053; 81001; 76705; 74177; J2270; J2405; J7030

== ENCOUNTER 2017-06-25 15:59 | Emergency (ER) | payer OTHER ==
--- NOTE | 2017-06-25 16:40 | ER Document Report ---
HPI - HPI Pain Level: 2 Context: 31 yo healthy male c/o cough, sore throat, body aches x 3 days. son had URI symptoms 4-5 days ago Associated Symptoms: Body/muscle aches, Nonproductive cough, Hoarseness. denies : Chills, Earache, Fever, Headache Exacerbated by: Denies Relieved by: Denies Similar symptoms previously: No Recently seen / treated by doctor: No - REPRODUCTIVE Reproductive: DENIES: : Past Medical History - General Information source: Patient - Social History Smoking Status: Current Every Day Smoker Frequency of alcohol use: Occasional Drug Abuse: None Occupation: heating and air Lives with: Family Family History: Reviewed & Not Pertinent Renal/ Medical History: Denies: Hx Peritoneal Dialysis Past Surgical History: Reports: Hx Tonsillectomy - Immunizations Hx Diphtheria, Pertussis, Tetanus Vaccination: Yes Vertical Provider Document - CONSTITUTIONAL Agree With Documented VS: Yes Exam Limitations: No Limitations General Appearance: WD/WN, No Apparent Distress - INFECTION CONTROL TRAVEL OUTSIDE OF THE [place] IN LAST 30 DAYS: No - HEENT HEENT: Atraumatic, PERRLA, Pharyngeal Tenderness, Pharyngeal Erythema. negative : Pharyngeal Exudate - NECK Neck: Normal Inspection, Supple - RESPIRATORY Respiratory: Breath Sounds Normal, No Respiratory Distress O2 Sat by Pulse Oximetry: 100 - NEURO Level of Consciousness: Awake, Alert, Appropriate Course - Re-evaluation Re-evalutation: 06/25/17 16:43 there is low risk for acute coronary syndrome, respiratory failure, sepsis. home care, f/u with pcm and ED return precautions discussed. pt agreeable with plan and stable for discharge - Vital Signs Vital signs: Temp Pulse Resp BP Pulse Ox 98.5 F 87 16 129/64 H 100 06/25/17 16:03 06/25/17 16:03 06/25/17 16:03 06/25/17 16:03 06/25/17 16:03 Discharge - Discharge Clinical Impression: URI, acute Condition: Stable Disposition: HOME, SELF-CARE Instructions: Upper Respiratory Illness ([facility]) Additional Instructions: you have a viral upper respiratory infection symptomatic support rest and hydrate follow up with primary care if symptoms persist more than 10 days Forms: Return to Work
[2017-06-25 16:51] VITALS: BP 115/60
== END 2017-06-25 16:54 | disposition home or self-care (01) ==
LOC: ER 15:59
DX: J02.9 Acute pharyngitis, unspecified (principal); R05 Cough; M79.1 Myalgia; R49.0 Dysphonia; F17.200 Nicotine dependence, unspecified, uncomplicated
CPT/HCPCS: 99282

== ENCOUNTER 2017-07-31 07:34 | Emergency (ER) | payer OTHER ==
[2017-07-31] MEDS ORDERED: KETOROLAC TROMETHAMINE INJ/PF 30 MG/1 ML SDV IV ONE (08:38)
[2017-07-31] MEDS ORDERED: NORMAL SALINE 1000 ML 1,000 ML IV PRN ×2 (08:39→08:52)
--- NOTE | 2017-07-31 08:45 | ER Document Report ---
ED Medical Screen (RME) - General Chief Complaint: Abdominal Pain Stated Complaint: STOMACH PAIN Time Seen by Provider: 07/31/17 08:07 TRAVEL OUTSIDE OF THE [place] IN LAST 30 DAYS: No - HPI Notes: 31-year-old male presents today with complaints of right upper quadrant pain that started approximately 1 day ago. Reports pain is 8 out of 10, sharp and throbbing. States pain is constant, denies worse after eating. History of cholelithiasis, states he was seen here a year ago. Patient did follow-up with a director of product development, where an ERCP was performed. Patient did not have a cholecystectomy. Denies any chest pain, shortness of breath, nausea, vomiting, diarrhea, rectal or testicular pain, hematuria, dizziness, lightheadedness, blurred vision, double vision, loss of vision. Patient has not tried any over- the-counter medications for his pain. Patient states he is not eating since this started.I have greeted and performed a rapid initial assessment of this patient. A comprehensive ED assessment and evaluation of the patient, analysis of test results and completion of medical decision making process will be conducted by an additional ED providers. 07/31/17 09:03 07/31/17 09:22 - Related Data Allergies/Adverse Reactions: cefaclor [From Ceclor] Allergy (Verified 07/31/17 07:34) meperidine [From Demerol] Adverse Reaction (Verified 07/31/17 07:34) Past Medical History - Social History Frequency of alcohol use: Rare Drug Abuse: None Renal/ Medical History: Denies: Hx Peritoneal Dialysis Past Surgical History: Reports: Hx Tonsillectomy - Immunizations Hx Diphtheria, Pertussis, Tetanus Vaccination: Yes Physical Exam - Vital signs Vitals: Temp Pulse Resp BP Pulse Ox 97.6 F 68 16 120/60 99 07/31/17 07:36 07/31/17 07:36 07/31/17 07:36 07/31/17 07:36 07/31/17 07:36 Course - Vital Signs Vital signs: Temp Pulse Resp BP Pulse Ox 97.6 F 68 16 120/60 99 07/31/17 07:36 07/31/17 07:36 07/31/17 07:36 07/31/17 07:36 07/31/17 07:36 - Laboratory Result Diagrams: 07/31/17 08:38 07/31/17 08:38 Laboratory results interpreted by me: 07/31/17 08:38 Urine Blood SMALL H Urine Urobilinogen 2.0 H Ur Leukocyte Esterase TRACE H
[2017-07-31 08:59] LABS: ABSOLUTE EOSINOPHILS # (AUTO) 0.1 10^3/uL (0.0-0.6); ABSOLUTE LYMPHOCYTES (AUTO) 1.9 10^3/uL (0.5-4.7); ABSOLUTE MONOCYTES (AUTO) 0.5 10^3/uL (0.1-1.4); ABSOLUTE NEUT (AUTO) 3.1 10^3/uL (1.7-8.2); BASOPHILS % (AUTO) 0.3 % (0-2); EOSINOPHILS % (AUTO) 2.3 % (0-6); HEMOGLOBIN 15.1 g/dL (13.5-17.0); LYMPHOCYTES % (AUTO) 33.7 % (13-45); MEAN CORPUSCULAR HEMOGLOBIN 28.8 pg (27.0-33.4); MEAN CORPUSCULAR HGB CONC 32.8 g/dL (32.0-36.0); MEAN CORPUSCULAR VOLUME 88 fl (80-97); MONOCYTES % (AUTO) 8.3 % (3-13); PLATELET COUNT 196 10^3/uL (150-450); RED BLOOD COUNT 5.25 10^6/uL (4.35-5.55); RED CELL DISTRIBUTION WIDTH 13.1 % (11.5-14.0); SEGMENTED NEUTROPHILS % (AUTO) 55.4 % (42-78); TOTAL CELLS COUNTED % (AUTO) 100 %; WHITE BLOOD COUNT 5.6 10^3/uL (4.0-10.5)
[2017-07-31 09:06] LABS: APPEARANCE,URINE CLEAR; BILIRUBIN,URINE NEGATIVE (NEGATIVE); COLOR,URINE YELLOW; GLUCOSE, URINE NEGATIVE (NEGATIVE); KETONES,URINE NEGATIVE (NEGATIVE); LEUKOCYTE ESTERASE,URINE TRACE (NEGATIVE); NITRITE,URINE NEGATIVE (NEGATIVE); PROTEIN,URINE NEGATIVE (NEGATIVE)
[2017-07-31 09:22] LABS: ALANINE AMINOTRANSFERASE 27 U/L (21-72); ALBUMIN 4.6 g/dL (3.5-5.0); ALKALINE PHOSPHATASE 32 U/L (38-126); AMYLASE 59 U/L (30-110); ANION GAP 7 (5-19); ASPARTATE AMINO TRANSFERASE 20 U/L (17-59); BILIRUBIN,DIRECT 0.2 mg/dL (0.0-0.4); BILIRUBIN,TOTAL 0.6 mg/dL (0.2-1.3); BLOOD UREA NITROGEN 12 mg/dL (7-20); C-REACTIVE PROTEIN < 5.0 mg/L (<10.0); CALCIUM 10.3 mg/dL (8.4-10.2); CARBON DIOXIDE 32 mmol/L (22-30); CHLORIDE 106 mmol/L (98-107); GLUCOSE 91 mg/dL (75-110); LIPASE 50.7 U/L (23-300); POTASSIUM 4.4 mmol/L (3.6-5.0); SODIUM 145.2 mmol/L (137-145); TOTAL PROTEIN 6.8 g/dL (6.3-8.2)
--- NOTE | 2017-07-31 10:54 | RADIOLOGY REPORT (SQ) ---
EXAM DESCRIPTION: U/S ABDOMEN LIMITED W/O DOP COMPLETED DATE/TIME: 07/31/2017 10:15 am REASON FOR STUDY: RUQ pain x 1 day. hx of cholecysitis COMPARISON: Abdominal ultrasound 02/11/2017, 01/13/2017 CT abdomen pelvis 01/14/2017, 02/12/2017 TECHNIQUE: Dynamic and static grayscale images acquired of the abdomen and recorded on PACS. Additio nal selected color Doppler and spectral images recorded. LIMITATIONS: None. FINDINGS: PANCREAS: Midline pancreas unremarkable LIVER: No masses. Echotexture normal. LIVER VASCULATURE: Normal directional flow of the main portal vein and hepatic veins. GALLBLADDER: No stones. Normal wall thickness. No pericholecystic fluid. ULTRASOUND-DETECTED DE GUZMAN'S SIGN: Negative. INTRAHEPATIC DUCTS AND COMMON DUCT: CBD and intrahepatic ducts normal caliber. No filling defects. INFERIOR VENA CAVA: Normal flow. AORTA: No aneurysm. RIGHT KIDNEY: Normal size. Normal echogenicity. No solid or suspicious masses. No hydronephrosis. No calcifications. PERITONEAL AND RIGHT PLEURAL SPACE: No ascites or effusions. OTHER: No other significant findings. IMPRESSION: NORMAL RIGHT UPPER QUADRANT ULTRASOUND. TECHNICAL DOCUMENTATION: JOB ID: [id number] [employer]- All Rights Reserved
--- NOTE | 2017-07-31 10:58 | RADIOLOGY REPORT (SQ) ---
EXAM DESCRIPTION: CT ABD/PELVIS WITH IV ONLY COMPLETED DATE/TIME: 07/31/2017 10:32 am REASON FOR STUDY: RUQ pain with noted hematuria on u/a COMPARISON: 02/12/2017. TECHNIQUE: CT scan of the abdomen and pelvis performed using helical scanning technique with dynamic intravenous contrast injection. No oral contrast. Images reviewed with lung, soft tissue, and bone windows. Reconstructed coronal and sagittal MPR images reviewed. Delayed images for evaluation of the urinary system also acquired. All images stored on PACS. All CT scanners at this facility use dose modulation, iterative reconstruction, and/or weight based d osing when appropriate to reduce radiation dose to as low as reasonably achievable (ALARA). [facility]: Dose Right [facility]: CareDose [facility]: Dose Right [facility]: Teradose 4D [facility]: [employer] CONTRAST TYPE AND DOSE: contrast/concentration: Isovue 370.00 mg/ml; Total Contrast Delivered: 69.0 ml; Total Saline Delivered: 65.0 ml RENAL FUNCTION: BUN 12 creatinine 0.87. RADIATION DOSE: CT Rad equipment meets quality standard of care and radiation dose reduction techniq ues were employed. CTDIvol: 4.8 - 5.0 mGy. DLP: 474 mGy-cm.. LIMITATIONS: None. FINDINGS: LOWER CHEST: No significant findings. No nodules or infiltrates. LIVER: Normal size. No masses. No dilated ducts. SPLEEN: Normal size. No focal lesions. PANCREAS: No masses. No significant calcifications. No adjacent inflammation or peripancreatic fluid collections. Pancreatic duct not dilated. GALLBLADDER: No identified stones by CT criteria. No inflammatory changes to suggest cholecystitis. ADRENAL GLANDS: No significant masses or asymmetry. RIGHT KIDNEY AND URETER: No solid masses. No significant calcifications. No hydronephrosis or hyd roureter. LEFT KIDNEY AND URETER: No solid masses. No significant calcifications. No hydronephrosis or hydr oureter. AORTA AND VESSELS: No aneurysm. No dissection. Renal arteries, SMA, celiac without stenosis. RETROPERITONEUM: No retroperitoneal adenopathy, hemorrhage or masses. BOWEL AND PERITONEAL CAVITY: No masses or inflammatory changes. No free fluid or peritoneal masses. APPENDIX: Normal. PELVIS: No mass. No free fluid. Normal bladder. ABDOMINAL WALL: No masses. No hernias. BONES: No significant or acute findings. OTHER: No other significant finding. IMPRESSION: NO SIGNIFICANT OR ACUTE FINDING IN THE ABDOMEN OR PELVIS ON CT SCAN WITH IV CONTRAST. TECHNICAL DOCUMENTATION: JOB ID: [id number] Quality ID # [id number]: Final reports with documentation of one or more dose reduction techniques (e.g., Au tomated exposure control, adjustment of the mA and/or kV according to patient size, use of iterative reconstruction technique) 2010 [employer]- All Rights Reserved
--- NOTE | 2017-07-31 12:45 | ER Document Report ---
ED General - General Chief Complaint: Abdominal Pain Stated Complaint: STOMACH PAIN Time Seen by Provider: 07/31/17 08:07 Notes: 31-year-old male here with continued chronic right upper quadrant abdominal pain intermittent worse with eating. He has also had some nausea but no vomiting diarrhea fevers chills. He has been taking Tylenol and Goody powder. He has seen a credit associate for this and has had an upper GI. TRAVEL OUTSIDE OF THE [place] IN LAST 30 DAYS: No - Related Data Allergies/Adverse Reactions: cefaclor [From Ceclor] Allergy (Verified 07/31/17 07:34) meperidine [From Demerol] Adverse Reaction (Verified 07/31/17 07:34) Past Medical History - Social History Smoking Status: Former Smoker Frequency of alcohol use: Rare Drug Abuse: None Family History: Reviewed & Not Pertinent Patient has suicidal ideation: No Patient has homicidal ideation: No Renal/ Medical History: Denies: Hx Peritoneal Dialysis Past Surgical History: Reports: Hx Tonsillectomy - Immunizations Hx Diphtheria, Pertussis, Tetanus Vaccination: Yes Review of Systems - Review of Systems Notes: See history of present illness for pertinent positive review of systems; otherwise all review of systems have been reviewed and are negative Physical Exam - Vital signs Vitals: Temp Pulse Resp BP Pulse Ox 97.6 F 68 16 120/60 99 07/31/17 07:36 07/31/17 07:36 07/31/17 07:36 07/31/17 07:36 07/31/17 07:36 - Notes Notes: PHYSICAL EXAMINATION: GENERAL: Well-appearing and in no acute distress. HEAD: Atraumatic, normocephalic. EYES: Pupils equal round and reactive to light, extraocular movements intact, sclera anicteric, conjunctiva are normal. ENT: nares patent, oropharynx clear without exudates. Moist mucous membranes. NECK: Normal range of motion, supple without lymphadenopathy LUNGS: CTAB and equal. No wheezes rales or rhonchi. HEART: Regular rate and rhythm without murmurs ABDOMEN: Soft, minimal right upper quadrant tenderness. No Benavides sign. No guarding, no rebound EXTREMITIES: Normal range of motion, no pitting edema. No cyanosis. NEUROLOGICAL: Cranial nerves grossly intact. Normal sensory/motor exams. PSYCH: Normal mood, normal affect. SKIN: Warm, Dry, normal turgor, no rashes or lesions noted Course - Re-evaluation Re-evalutation: 07/31/17 12:50 MEDICAL DECISION MAKING: Concern for cholelithiasis/cholecystitis versus gastritis versus pancreatitis Results reviewed and normal LFT lipase Ultrasound and CT do not show any acute surgical pathology Discussed results with patient and instructed follow-up PCP and/or gastroenterology Home with prescription Bentyl and Zofran Patient understands and agrees to the plan of care - Vital Signs Vital signs: Temp Pulse Resp BP Pulse Ox 97.9 F 50 L 18 107/63 100 07/31/17 12:45 07/31/17 12:45 07/31/17 12:45 07/31/17 12:45 07/31/17 12:45 - Laboratory Result Diagrams: 07/31/17 08:38 07/31/17 08:38 Laboratory results interpreted by me: 07/31/17 07/31/17 08:38 08:38 Sodium 145.2 H Carbon Dioxide 32 H Calcium 10.3 H Alkaline Phosphatase 32 L Urine Blood SMALL H Urine Urobilinogen 2.0 H Ur Leukocyte Esterase TRACE H Discharge - Discharge Clinical Impression: Chronic right upper quadrant pain Condition: Good Disposition: HOME, SELF-CARE Additional Instructions: Your gallbladder ultrasound and your abdominal CT did not show any big surgical emergencies. Use the prescribed medications as needed. You were seen in the emergency department at [facility]. If you were given any sedating medications, be sure not to operate heavy machinery (example - driving ) and be sure you are not too sedated to walk appropriately. Please followup with your primary physician in the next few days for further management/ evaluation. Please return to the emergency department for worsening of symptoms or any symptom that you deem to be concerning or life-threatening. Thank you for allowing us to be part of your care. This documentation will serve as your school/work note. Prescriptions: Ondansetron [Zofran Odt 4 mg Tablet] 1 - 2 tab PO Q4HP PRN #10 tab.rapdis PRN Reason: Dicyclomine HCl 10 mg PO BIDP PRN #14 capsule PRN Reason:
[2017-07-31 12:51] VITALS: BP 107/63
== END 2017-07-31 12:51 | disposition home or self-care (01) ==
LOC: ER 07:34
DX: R10.11 Right upper quadrant pain (principal); G89.29 Other chronic pain; R11.0 Nausea; Z88.1 Allergy status to other antibiotic agents
CPT/HCPCS: 99284; 96361; 96374; 36415; 87086; 82150; 83690; 85025; 86140; 80053; 81001; 76705; 74177; J1885; J7030

== ENCOUNTER 2018-05-24 19:19 | Emergency (ER) | payer OTHER ==
[2018-05-24 19:27] VITALS: BP 133/53
--- NOTE | 2018-05-24 19:44 | ER Document Report ---
HPI - HPI Pain Level: 3 Notes: Patient is a 32-year-old male with no significant past medical history who presents to the ED complaining of right fifth toe pain and left mid to lower rib pain status post injury yesterday. Patient states that his feet slipped out from underneath him on the stairway and he hit his back and his toe causing pain. Patient states that he is not so much concerned about his rib, but rather his toe as it is bruised and swollen. Patient states that he did not hit his head and did not lose consciousness. He is otherwise able to ambulate and weight-bear. He is eating and drinking without any difficulties. He is urinating normally. Denies any headache, fever, head injury, neck pain, changes in vision/speech/mentation/hearing, URI, sore throat, chest pain, palpitations, syncope, cough, shortness of breath, wheeze, dyspnea, abdominal pain, nausea/vomiting/diarrhea, urinary retention, dysuria, hematuria, loss of control of bowel or bladder, numbness/tingling, saddle anesthesia, muscle paralysis/weakness, or rash. - ROS Systems Reviewed and Negative: Yes All other systems reviewed and negative - REPRODUCTIVE Reproductive: DENIES: : Past Medical History - Social History Smoking Status: Never Smoker Family History: Reviewed & Not Pertinent Renal/ Medical History: Denies: Hx Peritoneal Dialysis Past Surgical History: Reports: Hx Tonsillectomy - Immunizations Hx Diphtheria, Pertussis, Tetanus Vaccination: Yes Vertical Provider Document - CONSTITUTIONAL Agree With Documented VS: Yes Notes: PHYSICAL EXAMINATION: GENERAL: Well-appearing, well-nourished and in no acute distress. Head: atraumatic. Neck: FROM. Strength 5+/5. Non-tender. LUNGS: Breath sounds clear to auscultation bilaterally and equal. No wheezes rales or rhonchi. HEART: Regular rate and rhythm without murmurs, rubs, gallops. ABDOMEN: Soft, nontender, nondistended abdomen. No guarding, no rebound. No masses appreciated. Normal bowel sounds present. No CVA tenderness bilaterally. No ecchymosis. Musculoskeletal: LE's b/l: FROM to passive/active. Strength 5+/5. No deficits noted. No bony tenderness of extremities aside from tenderness to the rt 5th toe with noted ecchymosis/swelling of that toe. No other tenderness to the foot. Achilles intact. N/V intact distal. Back: FROM to passive/active. Strength 5+/5. No vertebral point tenderness, stepoffs, or deformities. No other bony tenderness, erythema, swelling, or ecchymosis. SLR negative b/l. + mild tenderness to the Left lateral rib approx #7 w/o ecchymosis. No SI jt tenderness. No foot drop Extremities: No cyanosis, clubbing, or edema b/l. Peripheral pulses 2+. Capillary refill less than 2 seconds. NEUROLOGICAL: Normal speech, normal gait. Normal sensory, motor exams. Reflexes 2+ b/l. PSYCH: Normal mood, normal affect. SKIN: see above. - INFECTION CONTROL TRAVEL OUTSIDE OF THE [place] IN LAST 30 DAYS: No Course - Re-evaluation Re-evalutation: 05/24/18 20:36 Patient is an afebrile, well-hydrated, 32-year-old male who presents to the ED with Rt toe pain and left rib pain, suspect contusions. Vitals are acceptable without any significant tachycardia, tachypnea, or hypoxia. PE is otherwise unremarkable for any neurovascular compromise, obvious tendon/ligament rupture, obvious fracture/dislocation, septic joint. X-rays unremarkable for any acute pathology. Patient declined any Tylenol or ice. Patient is nontoxic- appearing. Patient is able to ambulate and weight-bear. No other labs or imaging warranted at this time based on H&P. Conservative measures otherwise for symptoms. Recheck with your PCM in 3-5 days. Consider consult orthopedics. Return to the ED with any worsening/concerning symptoms otherwise as reviewed in discharge. Patient is in agreement. - Vital Signs Vital signs: Temp Pulse Resp BP Pulse Ox 98.2 F 76 18 133/53 H 100 05/24/18 19:25 05/24/18 19:25 05/24/18 19:25 05/24/18 19:25 05/24/18 19:25 Discharge - Discharge Clinical Impression: Toe pain, right, Rib pain on left side Condition: Stable Disposition: HOME, SELF-CARE Instructions: Rib Contusion ([facility]) Additional Instructions: Rest, Ice, Compression, Elevation Tylenol/ibuprofen as needed Light stretches daily Strength exercises as able Moist heat and massage may help F/u with your PCP in 3-5 days for a recheck Consider consult(s) with Orthopedics/physical therapy for ongoing/worsening symptoms Return to the ED with any worsening symptoms and/or development of fever, headache, chest pain, palpitations, syncope, shortness of breath, trouble breathing, abdominal pain, n/v/d, muscle weakness/paralysis, numbness/tingling, swelling, redness, or other worsening symptoms that are concerning to you. Forms: Elevated Blood Pressure Referrals: [facility] [Provider Group] - Follow up as needed
--- NOTE | 2018-05-24 20:13 | RADIOLOGY REPORT (SQ) ---
EXAM DESCRIPTION: FOOT RIGHT COMPLETE COMPLETED DATE/TIME: 05/24/2018 8:00 pm REASON FOR STUDY: rt 5th digit pain s/p injury COMPARISON: None. EXAM PARAMETERS: NUMBER OF VIEWS: Three views. TECHNIQUE: AP, lateral and oblique radiographic images acquired of the right foot. LIMITATIONS: None. FINDINGS: MINERALIZATION: Normal. BONES: No acute fracture or dislocation. No worrisome bone lesions. JOINTS: No effusion. SOFT TISSUES: No significant soft tissue swelling. No radiopaque foreign body. OTHER: No other significant finding. IMPRESSION: NO FRACTURE. TECHNICAL DOCUMENTATION: JOB ID: [id number] [place]-[id number] 2010 [employer]- All Rights Reserved Reading location - IP/workstation name: [email or web address]
--- NOTE | 2018-05-24 20:13 | RADIOLOGY REPORT (SQ) ---
EXAM DESCRIPTION: RIBS LEFT W/PA CHEST COMPLETED DATE/TIME: 05/24/2018 8:00 pm REASON FOR STUDY: pain s/p injury COMPARISON: None. TECHNIQUE: Frontal view of the chest and additional views of the left ribs acquired. NUMBER OF VIEWS: Five view. LIMITATIONS: None. FINDINGS: FRONTAL CXR: No pneumothorax. No pleural effusion. No atelectasis or infiltrates. RIBS: No displaced rib fractures. No lytic or blastic bony lesions. OTHER: No other significant finding. IMPRESSION: NO PNEUMOTHORAX. NO DISPLACED RIB FRACTURES. COMMENT: SITE OF TRAUMA/COMPLAINT MARKED/STAMP COMPLETED: YES. TECHNICAL DOCUMENTATION: JOB ID: [id number] @[employer]- All Rights Reserved Reading location - IP/workstation name: [email or web address]
== END 2018-05-24 20:42 | disposition home or self-care (01) ==
LOC: ER 19:19
DX: R07.81 Pleurodynia (principal); M79.674 Pain in right toe(s)
CPT/HCPCS: 99283